=== PATIENT | male | born 1935 | race Caucasian/White ===

== ENCOUNTER 2025-02-08 12:37 | Outpatient (REF) | payer MEDICARE, SELFPAY ==
[2025-02-08 13:05] LABS: Hematocrit 46.9 % (42.0-54.0); Hemoglobin 14.1 g/dL (14.0-18.0); Immature Granulocytes Abs Auto 0.12 10^3/uL (0.00-0.03); Immature Granulocytes Pct Auto 1.0 % (0.0-0.5); Lymphocytes Absolute Auto 0.8 10^3/uL (1.2-3.8); Mean Corpuscular HGB Conc 30.1 g/dL (29.9-35.2); Mean Corpuscular Hemoglobin 31.8 pg (25.9-34.0); Platelet Count 124 10^3/uL (150-450); Red Blood Count 4.43 10^6/uL (4.70-6.10); White Blood Count 12.2 10^3/uL (4.0-11.0)
[2025-02-08 13:48] LABS: Mean Corpuscular Volume 105.9 fL (80.0-94.0)
== END 2025-02-08 12:38 | disposition home or self-care (01) ==
LOC: LAB 12:37
PROVIDERS: PCP Family Medicine; Visit Provider Family Medicine
DX: R06.02 Shortness of breath (principal)
CPT/HCPCS: 36415; 85025